=== PATIENT | female | born 1995 | race American Indian/Alaskan Native ===

== ENCOUNTER 2018-06-12 20:16 | Emergency (ER) | payer MEDICAID ==
--- NOTE | 2018-06-12 20:30 | Emergency Department Report ---
Blank Doc - Documentation Documentation: This is a 23-year-old female that presents with right foot dog bite. Stated is uncertain if vaccines are present. This initial assessment/diagnostic orders/clinical plan/treatment(s) is/are subject to change based on patient's health status, clinical progression and re-assessment by fellow clinical providers in the ED. Further treatment and workup at subsequent clinical providers discretion. Patient/guardians urged not to elope from the ED as their condition may be serious if not clinically assessed and managed. Initial orders include: 1- Patient sent to [facility] for further evaluation and treatment
[2018-06-12 20:32] VITALS: BP 113/78
== END 2018-06-12 22:07 | disposition left against medical advice (07) ==
LOC: ED 20:16
DX: S91.351A Open bite, right foot, initial encounter (principal); W54.0XXA Bitten by dog, initial encounter; Y93.89 Activity, other specified; Y92.89 Other specified places as the place of occurrence of the external cause; Y99.8 Other external cause status; Z53.21 Procedure and treatment not carried out due to patient leaving prior to being seen by health care provider